=== PATIENT | female | born 1960 | race Hispanic/Latino ===

== ENCOUNTER → 2024-11-25 | Outpatient (CLI) | payer BC, MEDICARE ==
--- NOTE | 2024-11-25 12:55 | HMCIMG ---
US ABDOMINAL COMPLETE REASON: other secondary thrombocytopenia COMPARISON: None FINDINGS: There is normal sonographic appearance of the liver. There are no focal mass lesions. The liver is not enlarged.There is a normal-appearing gallbladder. Spleen is markedly enlarged at 6.0 x 6.8 x 19 cm. Kidneys appear normal in size and appearance. There is no evidence of mass, stone or hydronephrosis. Common duct appears normal. Aorta and inferior vena cava appear normal. The pancreas appears normal as well. IMPRESSION: 1. Marked to splenomegaly. 2. Otherwise normal exam.
== END | disposition home or self-care (01) ==
LOC: RAH 09:01
PROVIDERS: ATTEND Internal Medicine Medical Oncology
DX: R16.1 Splenomegaly, not elsewhere classified (principal); D69.59 Other secondary thrombocytopenia
CPT/HCPCS: 76700

== ENCOUNTER → 2025-05-20 | Outpatient (CLI) | payer BC, MEDICARE ==
--- NOTE | 2025-05-21 07:24 | HMCIMG ---
EXAMINATION: ULTRASOUND OF THE ABDOMEN WITH COLOR DOPPLER. CLINICAL HISTORY: Other secondary thrombocytopenia. COMPARISON: Ultrasound of the abdomen dated 11/26/2024. TECHNIQUE: Real-time grayscale ultrasound images of the abdomen. In addition, color Doppler is medically necessary to perform in order to evaluate vascularity and blood flow. FINDINGS: Liver: Normal in caliber, the right hepatic lobe measures 12.7 cm in the craniocaudal dimension. There is increased echogenicity of the hepatic parenchyma. There is no focal hepatic abnormality or intrahepatic biliary ductal dilatation. There is normal spectral Doppler of the main portal vein. Gallbladder: Within normal limits with normal wall thickness (0.2 cm). No hyperemia or pericholecystic free fluid. There is no cholelithiasis. Common bile duct is normal in caliber, measuring 0.3 cm. Spleen is bulky in caliber and measures 19.9 x 6.0 x 17.5 cm in craniocaudal, AP and transverse dimensions respectively. No focal lesions. Pancreas: Normal in caliber and echotexture. No calcification or dilated pancreatic duct. The kidneys are normal in caliber, the right kidney measures 8.8 x 4.5 x 4.6 cm and the left kidney measures 8.8 x 4.5 x 5.0 cm in craniocaudal, AP, and transverse dimensions respectively. There is normal renal cortical thickness, and cortical echogenicity. There is no renal calculus or hydronephrosis. Aorta and inferior vena cava appear normal. IMPRESSION: Hepatic steatosis. Moderate splenomegaly. Previously demonstrated right renal cortical cyst is not visualized. /Wilson
== END | disposition home or self-care (01) ==
LOC: RAH 08:12
PROVIDERS: ATTEND Internal Medicine Medical Oncology
DX: K76.0 Fatty (change of) liver, not elsewhere classified (principal); D69.59 Other secondary thrombocytopenia; R16.1 Splenomegaly, not elsewhere classified
CPT/HCPCS: 76700